=== PATIENT | female | born 1995 | race African-American/Black ===

== ENCOUNTER 2025-01-31 06:23 | Emergency (ER) | payer MEDICAID, OTHER ==
[~2025-01-31] VITALS: Ht 170.2 cm; Wt 70.0 kg
[2025-01-31 06:26] VITALS: O2SAT 99
[2025-01-31] MEDS: LEVETIRACETAM 1000MG PREMIX 100 ML IV ONE (07:00)
[2025-01-31 07:09] LABS: BASOPHILS % 1.1 % (0.0-2.0); EOSINOPHILS % 6.1 % (0.0-5.0); HEMATOCRIT. 34.8 % (36.0-48.0); HEMOGLOBIN. 10.9 g/dL (12.0-16.0); LYMPHOCYTES % 42.5 % (20.0-50.0); MEAN PLATELET VOLUME 9.3 fl (7.4-10.4); MONOCYTES % 11.0 % (2.0-8.0); NEUTROPHILS % 39.3 % (40.0-76.0); PLATELET 210 x1000/uL (130-400); RED BLOOD CELL COUNT 5.00 mill/uL (4.2-5.4); RED CELL DISTRIBUTION WIDTH 17.3 % (11.6-14.6)
[2025-01-31 07:16] LABS: ADD RBC MORPHOLOGY YES
[2025-01-31 07:22] LABS: CREATININE 0.7 mg/dL (0.6-1.0); UREA NITROGEN BLOOD 8 mg/dL (9-23)
[2025-01-31 07:23] LABS: ETHANOL BLOOD < 10 mg/dL (<10)
[2025-01-31 07:39] LABS: HCG SCREEN NEGATIVE
[2025-01-31 08:35] LABS: PLATELET ESTIMATE NORMAL
[2025-01-31 10:00] VITALS: BP 135/94; PULSE 74; RESP 15; TEMP 37.1; O2SAT 99
[2025-01-31] MEDS: POTASSIUM CHLORIDE 20MEQ/PACKET PO NR (10:39)
[2025-01-31] MEDS ORDERED: KEPP500 MT (11:21)
== END 2025-01-31 11:50 | disposition home or self-care (01) ==
LOC: ER 06:23
DX: G40.909 Epilepsy, unspecified, not intractable, without status epilepticus (principal); F17.200 Nicotine dependence, unspecified, uncomplicated; Z88.2 Allergy status to sulfonamides; R07.9 Chest pain, unspecified
CPT/HCPCS: 80048; 80320; 84703; 85025; 36415; 93005; 96374; 99284; 82542; J1953; Z7610; A4606; G0480